=== PATIENT | female | born 1970 | race Caucasian/White ===

== ENCOUNTER 2016-12-15 08:14 | Day surgery (SDC) | payer OTHER ==
[2016-12-15 10:28] VITALS: BMI 27.3
[2016-12-15] MEDS ORDERED: PROPOFOL 20 ML ONE ×2 (10:48)
[2016-12-15 11:41] VITALS: TEMP 98.2
[2016-12-15 12:14] VITALS: BP 116/61; PULSE 72
== END 2016-12-15 12:14 | disposition home or self-care (01) ==
LOC: JASU-ENDO 08:14
PROVIDERS: ATTEND Internal Medicine Gastroenterology
PROC: 0DJD8ZZ Inspection of Lower Intestinal Tract, Via Natural or Artificial Opening Endoscopic (ICD-10-PCS; principal; 2016-12-15 09:30)
DX: D64.9 Anemia, unspecified (principal); K57.30 Diverticulosis of large intestine without perforation or abscess without bleeding; K64.8 Other hemorrhoids
CPT/HCPCS: 84703

== ENCOUNTER 2021-01-17 11:10 | Inpatient (IN) | payer OTHER ==
[2021-01-17 12:32] LABS: BASO % 0.7 % (0-2.0); EOS % 0.5 % (0-4.5); HEMATOCRIT 34.5 % (32.4-45.2); HEMOGLOBIN 11.1 GM/dL (10.7-15.3); LYMPH % 10.6 % (8-40); MCH 29.9 pg (25.7-33.7); MCHC 32.3 g/dl (32.0-36.0); MEAN CELL VOLUME 92.7 fl (80-96); MEAN PLT VOLUME 8.4 fl (7.5-11.1); MONO % 4.8 % (3.8-10.2); NEUT % 83.4 % (42.8-82.8); PLATELET COUNT 162 10^3/uL (134-434); RBC 3.72 M/mm3 (3.60-5.2); RDW 14.2 % (11.6-15.6); WHITE BLOOD COUNT 7.2 K/mm3 (4.0-10.0)
[2021-01-17 12:53] LABS: CHLORIDE 110 mmol/L (98-107); SODIUM 141 mmol/L (136-145)
[2021-01-17 12:58] LABS: ALBUMIN 3.5 g/dl (3.4-5.0); ANION GAP 8 MMOL/L (8-16); BLOOD UREA NITROGEN 14.5 mg/dL (7-18); CALCIUM 7.6 mg/dL (8.5-10.1); CO2 23 mmol/L (21-32)
[2021-01-17 12:59] LABS: GLUCOSE,RANDOM 90 mg/dL (74-106); LIPASE 112 U/L (73-393)
[2021-01-17 13:01] LABS: CREATININE 0.9 mg/dL (0.55-1.3); SGOT/AST 30 U/L (15-37); SGPT/ALT 59 U/L (13-61)
[2021-01-17 13:03] LABS: BILIRUBIN,TOTAL 0.4 mg/dL (0.2-1); TOT PROT 6.5 g/dl (6.4-8.2)
[2021-01-17 13:06] LABS: ALK PHOS 56 U/L (45-117); N-TERMINAL BNP 723.5 pg/ml (5-125)
[2021-01-17 14:16] LABS: PH,URINE 5.5 (5.0-8.0); URINE APPEARANCE CLEAR; URINE BILIRUBIN NEGATIVE (NEGATIVE); URINE COLOR YELLOW; URINE GLUCOSE (UA) NEGATIVE (NEGATIVE); URINE KETONE NEGATIVE (NEGATIVE); URINE LEUK ESTERASE NEGATIVE (NEGATIVE); URINE NITRITE NEGATIVE (NEGATIVE); URINE PROTEIN NEGATIVE (NEGATIVE); URINE UROBILINOGEN 0.2 mg/dL (0.2-1.0)
[2021-01-17] MEDS ORDERED: SODIUM CHLORIDE 500 ML IV STA (16:27)
[2021-01-17] MEDS: HEPARIN NA (PORCINE) 5,000 UNITS/ML 1ML VIAL SQ SCH (21:54)
[2021-01-17 22:15] VITALS: BMI 30.1
[2021-01-18] MEDS ORDERED: ACETAMINOPHEN 1000 MG/100 ML VIAL (NON FORMULARY) IVPB ONE (01:51)
[2021-01-18] MEDS: HEPARIN NA (PORCINE) 5,000 UNITS/ML 1ML VIAL SQ SCH ×3 (05:02→21:21)
[2021-01-18] MEDS ORDERED: LEVOTHYROXINE NA 125 MCG TABLET (FP) PO SCH ×2 (07:00→13:02)
[2021-01-18 09:36] LABS: BASO % 0.9 % (0-2.0); EOS % 1.5 % (0-4.5); HEMATOCRIT 30.6 % (32.4-45.2); LYMPH % 23.9 % (8-40); MCH 30.2 pg (25.7-33.7); MCHC 32.7 g/dl (32.0-36.0); MEAN CELL VOLUME 92.5 fl (80-96); MEAN PLT VOLUME 8.6 fl (7.5-11.1); MONO % 6.3 % (3.8-10.2); NEUT % 67.4 % (42.8-82.8); PLATELET COUNT 133 10^3/uL (134-434); RDW 14.2 % (11.6-15.6); WHITE BLOOD COUNT 4.6 K/mm3 (4.0-10.0)
[2021-01-18] MEDS ORDERED: PT OWN MED DRAWER 7, Y5N ONE ×4 (09:47→21:20)
[2021-01-18 09:56] LABS: CHLORIDE 111 mmol/L (98-107); SODIUM 141 mmol/L (136-145)
[2021-01-18] MEDS ORDERED: predniSONE 5 MG/5 ML ORAL SOLN- UNIT-DOSE CUP PO SCH (10:00)
[2021-01-18] MEDS ORDERED: TACROLIMUS ANHYDROUS 1 MG CAPSULE PO SCH (10:00)
[2021-01-18] MEDS ORDERED: CALCITRIOL 0.25 MCG CAPSULE (FP) PO SCH (10:00)
[2021-01-18 10:01] LABS: ANION GAP 9 MMOL/L (8-16); BLOOD UREA NITROGEN 17.5 mg/dL (7-18); CO2 22 mmol/L (21-32); GLUCOSE,RANDOM 71 mg/dL (74-106); MAGNESIUM 1.8 mg/dL (1.8-2.4)
[2021-01-18 10:04] LABS: CREATININE 0.9 mg/dL (0.55-1.3); SGOT/AST 25 U/L (15-37); SGPT/ALT 49 U/L (13-61)
[2021-01-18 10:06] LABS: BILIRUBIN,TOTAL 0.9 mg/dL (0.2-1); TOT PROT 5.5 g/dl (6.4-8.2)
[2021-01-18 10:07] LABS: ALK PHOS 51 U/L (45-117)
[2021-01-18] MEDS: CALCIUM CARBONATE 650 MG TABLET PO SCH (10:33)
[2021-01-18] MEDS: LOSARTAN POTASSIUM 50 MG TABLET PO SCH (10:33)
[2021-01-18] MEDS ORDERED: ALBUTEROL SO4 2.5/IPRATROPIUM 0.5 INH SOL 3 ML VIAL.NEB. NEB PRN (12:36)
[2021-01-18] MEDS ORDERED: FUROSEMIDE 40 MG/4 ML INJECTABLE VIAL IVPUSH ONE (12:58)
[2021-01-18] MEDS ORDERED: predniSONE 5 MG TABLET (UD) PO SCH (15:00)
[2021-01-18 16:01] LABS: BASO % 0.7 % (0-2.0); EOS % 1.3 % (0-4.5); HEMATOCRIT 35.3 % (32.4-45.2); HEMOGLOBIN 11.5 GM/dL (10.7-15.3); MCH 29.9 pg (25.7-33.7); MCHC 32.6 g/dl (32.0-36.0); MEAN CELL VOLUME 91.8 fl (80-96); MEAN PLT VOLUME 8.4 fl (7.5-11.1); MONO % 5.3 % (3.8-10.2); NEUT % 77.7 % (42.8-82.8); PLATELET COUNT 155 10^3/uL (134-434); RBC 3.84 M/mm3 (3.60-5.2); RDW 14.1 % (11.6-15.6); WHITE BLOOD COUNT 4.9 K/mm3 (4.0-10.0)
[2021-01-18 16:08] LABS: IRON SERUM 32 ug/dL (50-175); TOTAL IRON BINDING CAPACITY 244 ug/dL (250-450)
[2021-01-18] MEDS: ALBUTEROL SO4 2.5/IPRATROPIUM 0.5 INH SOL 3 ML VIAL.NEB. NEB SCH ×2 (16:20→20:05)
[2021-01-18] MEDS: TACROLIMUS ANHYDROUS 1 MG CAPSULE PO SCH (21:22)
[2021-01-18] MEDS: MYCOPHENOLATE MOFETIL 500 MG TABLET PO SCH (21:22)
[2021-01-19] MEDS ORDERED: LEVOTHYROXINE NA 25 MCG TABLET (FP) ONE (05:21)
[2021-01-19] MEDS ORDERED: LEVOTHYROXINE NA 112 MCG TABLET (FP) ONE (05:22)
[2021-01-19] MEDS: HEPARIN NA (PORCINE) 5,000 UNITS/ML 1ML VIAL SQ SCH ×3 (06:05→21:25)
[2021-01-19] MEDS: LEVOTHYROXINE 112 MCG, LEVOTHYROXINE 25 MCG PO SCH (06:05)
[2021-01-19] MEDS: ALBUTEROL SO4 2.5/IPRATROPIUM 0.5 INH SOL 3 ML VIAL.NEB. NEB SCH ×4 (07:25→20:25)
[2021-01-19 08:14] LABS: BASO % 0.6 % (0-2.0); EOS % 2.1 % (0-4.5); HEMATOCRIT 32.3 % (32.4-45.2); HEMOGLOBIN 10.6 GM/dL (10.7-15.3); LYMPH % 27.5 % (8-40); MCH 30.1 pg (25.7-33.7); MCHC 32.9 g/dl (32.0-36.0); MEAN CELL VOLUME 91.7 fl (80-96); MONO % 8.4 % (3.8-10.2); NEUT % 61.4 % (42.8-82.8); PLATELET COUNT 143 10^3/uL (134-434); RBC 3.53 M/mm3 (3.60-5.2); RDW 13.8 % (11.6-15.6); WHITE BLOOD COUNT 4.6 K/mm3 (4.0-10.0)
[2021-01-19 08:29] LABS: CHLORIDE 105 mmol/L (98-107); SODIUM 139 mmol/L (136-145)
[2021-01-19 08:39] LABS: CALCIUM 7.2 mg/dL (8.5-10.1); GLUCOSE,RANDOM 72 mg/dL (74-106)
[2021-01-19 08:40] LABS: ALBUMIN 3.1 g/dl (3.4-5.0); ANION GAP 7 MMOL/L (8-16); CO2 28 mmol/L (21-32); MAGNESIUM 1.7 mg/dL (1.8-2.4)
[2021-01-19 08:41] LABS: SGPT/ALT 45 U/L (13-61)
[2021-01-19 08:42] LABS: SGOT/AST 17 U/L (15-37)
[2021-01-19 08:43] LABS: BILIRUBIN,TOTAL 0.6 mg/dL (0.2-1)
[2021-01-19 08:44] LABS: ALK PHOS 54 U/L (45-117)
[2021-01-19] MEDS ORDERED: PT OWN MED DRAWER 7, Y5N ONE ×2 (08:59→11:03)
[2021-01-19] MEDS ORDERED: FUROSEMIDE 40 MG/4 ML INJECTABLE VIAL IVPUSH ONE (09:10)
[2021-01-19] MEDS ORDERED: MAGNESIUM SULF 50% (8.12 MEQ/2 ML-1 GM VIAL) IVPB ONE (09:33)
[2021-01-19] MEDS ORDERED: MYCOPHENOLATE MOFETIL 500 MG TABLET PO SCH (10:00)
[2021-01-19] MEDS: methylPREDNISolone NA SUCC 40 MG/1 ML VIAL IVPUSH SCH ×2 (10:04→17:16)
[2021-01-19] MEDS: MYCOPHENOLATE MOFETIL 500 MG TABLET PO SCH ×2 (10:05→21:24)
[2021-01-19] MEDS: TACROLIMUS ANHYDROUS 1 MG CAPSULE PO SCH ×2 (10:05→21:24)
[2021-01-19] MEDS: LOSARTAN POTASSIUM 50 MG TABLET PO SCH (10:05)
[2021-01-19] MEDS: POTASSIUM CHLORIDE TABS 20 MEQ TABLET.ER (FP) PO SCH (10:05)
[2021-01-19] MEDS: CALCITRIOL 0.25 MCG CAPSULE (FP) PO SCH (10:05)
[2021-01-19] MEDS: CALCIUM CARBONATE 650 MG TABLET PO SCH (10:05)
[2021-01-19] MEDS: FUROSEMIDE 40 MG/4 ML INJECTABLE VIAL IVPUSH SCH (14:26)
[2021-01-19] MEDS: ACETAMINOPHEN 500 MG TABLET (FP) PO PRN (22:56)
[2021-01-20] MEDS: methylPREDNISolone NA SUCC 40 MG/1 ML VIAL IVPUSH SCH ×3 (01:08→17:41)
[2021-01-20] MEDS ORDERED: LEVOTHYROXINE NA 112 MCG TABLET (FP) ONE (05:31)
[2021-01-20] MEDS ORDERED: LEVOTHYROXINE NA 25 MCG TABLET (FP) ONE (05:31)
[2021-01-20] MEDS: HEPARIN NA (PORCINE) 5,000 UNITS/ML 1ML VIAL SQ SCH ×3 (05:32→21:29)
[2021-01-20] MEDS: FUROSEMIDE 40 MG/4 ML INJECTABLE VIAL IVPUSH SCH ×2 (05:32→14:32)
[2021-01-20] MEDS: LEVOTHYROXINE 112 MCG, LEVOTHYROXINE 25 MCG PO SCH (06:12)
[2021-01-20] MEDS: ALBUTEROL SO4 2.5/IPRATROPIUM 0.5 INH SOL 3 ML VIAL.NEB. NEB SCH ×4 (07:20→20:07)
[2021-01-20] MEDS ORDERED: PT OWN MED DRAWER 7, Y5N ONE ×2 (09:37→21:16)
[2021-01-20 09:38] LABS: BASO % 0.4 % (0-2.0); HEMATOCRIT 38.7 % (32.4-45.2); LYMPH % 2.9 % (8-40); MCH 30.2 pg (25.7-33.7); MCHC 33.5 g/dl (32.0-36.0); MEAN CELL VOLUME 89.9 fl (80-96); MEAN PLT VOLUME 7.1 fl (7.5-11.1); MONO % 2.4 % (3.8-10.2); NEUT % 94.3 % (42.8-82.8); PLATELET COUNT 185 10^3/uL (134-434); RDW 14.7 % (11.6-15.6); WHITE BLOOD COUNT 11.5 K/mm3 (4.0-10.0)
[2021-01-20] MEDS: MYCOPHENOLATE MOFETIL 500 MG TABLET PO SCH ×2 (09:41→21:31)
[2021-01-20] MEDS: CALCIUM CARBONATE 650 MG TABLET PO SCH (09:41)
[2021-01-20] MEDS: LOSARTAN POTASSIUM 50 MG TABLET PO SCH (09:41)
[2021-01-20] MEDS: CALCITRIOL 0.25 MCG CAPSULE (FP) PO SCH (09:41)
[2021-01-20] MEDS: POTASSIUM CHLORIDE TABS 20 MEQ TABLET.ER (FP) PO SCH (09:41)
[2021-01-20] MEDS: TACROLIMUS ANHYDROUS 1 MG CAPSULE PO SCH (09:41)
[2021-01-20 10:01] LABS: BLOOD UREA NITROGEN 21.9 mg/dL (7-18); MAGNESIUM 1.8 mg/dL (1.8-2.4)
[2021-01-20 10:04] LABS: CREATININE 1.2 mg/dL (0.55-1.3)
[2021-01-20 10:05] LABS: BILIRUBIN,TOTAL 0.7 mg/dL (0.2-1)
[2021-01-20 10:23] LABS: ALBUMIN 4.3 g/dl (3.4-5.0); CALCIUM 8.4 mg/dL (8.5-10.1); TOT PROT 8.2 g/dl (6.4-8.2)
[2021-01-20 11:31] LABS: ANISOCYTOSIS 1+; MACROCYTOSIS 0; OVALOCYTE 1+; PLATELET ESTIMATE NORMAL; TARGET CELLS 1+
[2021-01-20] MEDS ORDERED: TACROLIMUS ANHYDROUS 1 MG CAPSULE PO SCH (20:32)
[2021-01-20] MEDS: TACROLIMUS ANHYDROUS 1 MG, TACROLIMUS ANHYDROUS 0.5 MG PO SCH (21:29)
[2021-01-20] MEDS: ACETAMINOPHEN 500 MG TABLET (FP) PO PRN (21:41)
[2021-01-21] MEDS: methylPREDNISolone NA SUCC 40 MG/1 ML VIAL IVPUSH SCH ×2 (02:31→09:21)
[2021-01-21] MEDS ORDERED: LEVOTHYROXINE NA 25 MCG TABLET (FP) ONE (06:26)
[2021-01-21] MEDS ORDERED: LEVOTHYROXINE NA 112 MCG TABLET (FP) ONE (06:26)
[2021-01-21] MEDS: HEPARIN NA (PORCINE) 5,000 UNITS/ML 1ML VIAL SQ SCH ×3 (06:30→22:06)
[2021-01-21] MEDS: LEVOTHYROXINE 112 MCG, LEVOTHYROXINE 25 MCG PO SCH (06:30)
[2021-01-21] MEDS: ALBUTEROL SO4 2.5/IPRATROPIUM 0.5 INH SOL 3 ML VIAL.NEB. NEB SCH ×4 (07:25→20:48)
[2021-01-21] MEDS ORDERED: PT OWN MED DRAWER 7, Y5N ONE ×2 (09:14→22:02)
[2021-01-21] MEDS: POTASSIUM CHLORIDE TABS 20 MEQ TABLET.ER (FP) PO SCH (09:20)
[2021-01-21] MEDS: guaiFENesin/CODEINE 5 ML UNIT-DOSE CUPS PO PRN (09:20)
[2021-01-21] MEDS: LOSARTAN POTASSIUM 50 MG TABLET PO SCH (09:20)
[2021-01-21] MEDS: TACROLIMUS ANHYDROUS 1 MG, TACROLIMUS ANHYDROUS 0.5 MG PO SCH ×2 (09:22→22:05)
[2021-01-21] MEDS: MYCOPHENOLATE MOFETIL 500 MG TABLET PO SCH ×2 (09:23→22:05)
[2021-01-21] MEDS: CALCIUM CARBONATE 650 MG TABLET PO SCH (09:23)
[2021-01-21] MEDS: CALCITRIOL 0.25 MCG CAPSULE (FP) PO SCH (09:24)
[2021-01-21 12:52] LABS: URINE APPEARANCE TURBID; URINE BILIRUBIN NEGATIVE (NEGATIVE); URINE COLOR YELLOW; URINE GLUCOSE (UA) NEGATIVE (NEGATIVE); URINE KETONE NEGATIVE (NEGATIVE); URINE LEUK ESTERASE 3+ (NEGATIVE); URINE NITRITE NEGATIVE (NEGATIVE); URINE PROTEIN NEGATIVE (NEGATIVE); URINE UROBILINOGEN 0.2 mg/dL (0.2-1.0)
[2021-01-21 13:03] LABS: URINE RBC 70.6 /uL (0-23.9)
[2021-01-21 13:04] LABS: EPI CELLS 132.3 /uL (0-25.1); HYALINE CASTS 2.79 /uL (0-3.1); URINE BACTERIA 3564.7 /uL (0-1359)
[2021-01-21] MEDS ORDERED: cefTRIAXone SODIUM 1 GM VIAL ONE (16:42)
[2021-01-21] MEDS ORDERED: DEXTROSE 5%-WATER - 50 ML IVPB ONE (16:43)
[2021-01-21] MEDS: CEFTRIAXONE 1 GM in DEXTROSE 5%-WATER - 50 ML IVPB SCH (16:58)
[2021-01-21] MEDS ORDERED: MICONAZOLE NITRATE 2% VAGINAL CREAM 45 GM TUBE VG SCH (22:00)
[2021-01-22] MEDS ORDERED: LEVOTHYROXINE NA 25 MCG TABLET (FP) ONE (06:23)
[2021-01-22] MEDS ORDERED: LEVOTHYROXINE NA 112 MCG TABLET (FP) ONE (06:24)
[2021-01-22] MEDS: HEPARIN NA (PORCINE) 5,000 UNITS/ML 1ML VIAL SQ SCH (06:25)
[2021-01-22] MEDS: LEVOTHYROXINE 112 MCG, LEVOTHYROXINE 25 MCG PO SCH (06:25)
[2021-01-22] MEDS: guaiFENesin/CODEINE 5 ML UNIT-DOSE CUPS PO PRN (06:33)
[2021-01-22] MEDS: ALBUTEROL SO4 2.5/IPRATROPIUM 0.5 INH SOL 3 ML VIAL.NEB. NEB SCH ×2 (08:30→13:00)
[2021-01-22 09:06] VITALS: BP 136/64; PULSE 115; TEMP 98.3
[2021-01-22] MEDS ORDERED: DEXTROSE 5%-WATER - 50 ML IVPB ONE (09:21)
[2021-01-22] MEDS ORDERED: cefTRIAXone SODIUM 1 GM VIAL ONE (09:21)
[2021-01-22] MEDS: CEFTRIAXONE 1 GM in DEXTROSE 5%-WATER - 50 ML IVPB SCH (09:22)
[2021-01-22] MEDS: POTASSIUM CHLORIDE TABS 20 MEQ TABLET.ER (FP) PO SCH (09:24)
[2021-01-22] MEDS: LOSARTAN POTASSIUM 50 MG TABLET PO SCH (09:24)
[2021-01-22] MEDS: TACROLIMUS ANHYDROUS 1 MG, TACROLIMUS ANHYDROUS 0.5 MG PO SCH (09:25)
[2021-01-22] MEDS: CALCIUM CARBONATE 650 MG TABLET PO SCH (09:26)
[2021-01-22] MEDS: MYCOPHENOLATE MOFETIL 500 MG TABLET PO SCH (09:26)
[2021-01-22] MEDS ORDERED: PT OWN MED DRAWER 7, Y5N ONE ×2 (09:28→11:21)
[2021-01-22] MEDS: CALCITRIOL 0.25 MCG CAPSULE (FP) PO SCH ×2 (11:08→11:33)
[2021-01-22 11:46] LABS: HEMATOCRIT 43.4 % (32.4-45.2); HEMOGLOBIN 13.9 GM/dL (10.7-15.3); MCH 29.6 pg (25.7-33.7); MCHC 32.1 g/dl (32.0-36.0); MEAN CELL VOLUME 92.4 fl (80-96); MEAN PLT VOLUME 8.4 fl (7.5-11.1); PLATELET COUNT 187 10^3/uL (134-434); RDW 14.7 % (11.6-15.6)
[2021-01-22 12:18] LABS: BLOOD UREA NITROGEN 21.3 mg/dL (7-18)
[2021-01-22 12:19] LABS: MAGNESIUM 1.9 mg/dL (1.8-2.4)
[2021-01-22 12:22] LABS: CREATININE 0.9 mg/dL (0.55-1.3)
== END 2021-01-22 14:33 | disposition home or self-care (01) | DRG 194 ==
LOC: JER 11:10 → JERBED 13:45 → J6S 21:12
PROVIDERS: ADMIT Family Medicine; ATTEND Family Medicine
DX: I13.2 Hypertensive heart and chronic kidney disease with heart failure and with stage 5 chronic kidney disease, or end stage renal disease (principal); N18.6 End stage renal disease; N39.0 Urinary tract infection, site not specified; E03.9 Hypothyroidism, unspecified; R07.89 Other chest pain; R79.89 Other specified abnormal findings of blood chemistry; E83.51 Hypocalcemia; R93.89 Abnormal findings on diagnostic imaging of other specified body structures; I50.31 Acute diastolic (congestive) heart failure; E78.5 Hyperlipidemia, unspecified; Z99.2 Dependence on renal dialysis; Z94.0 Kidney transplant status; Z85.3 Personal history of malignant neoplasm of breast
CPT/HCPCS: 36415; 71045-TC-FY; 71046-TC-FY; 71275-TC; 80048; 80053; 80197; 81003; 82550; 82728; 83540; 83550; 83690; 83735; 83880; 84100; 84443; 84484; 85025; 85027; 85379; 87086; 93005; 93010; 93306-TC; 93970-TC; 94010; 94640; 99285-25; C9803; J0131; J1644; J7517; Q9967; U0003; U0005

== ENCOUNTER 2021-04-02 04:37 | Day surgery (SDC) | payer OTHER ==
[2021-04-01 17:35] VITALS: BMI 34.5
[2021-04-02] MEDS ORDERED: HEPARIN NA (PORCINE) 5,000 UNITS/ML 1ML VIAL ONE (07:30)
[2021-04-02] MEDS ORDERED: LIDOCAINE HCL 1%, 10 MG/ML (20ML VIAL) ONE (07:30)
[2021-04-02] MEDS ORDERED: POVIDONE-IODINE OINTMENT 10% - 28.4 GM TUBE ONE (07:30)
[2021-04-02] MEDS ORDERED: PAPAVERINE HCL 30 MG/1 ML 10 ML VIAL NR ONE (07:30)
[2021-04-02] MEDS ORDERED: MIDAZOLAM HCL 2 MG/2 ML SINGLE DOSE VIAL ONE (09:43)
[2021-04-02] MEDS ORDERED: LIDOCAINE HCL 1%, 10 MG/ML (20ML VIAL) PNB ONE (10:25)
[2021-04-02] MEDS ORDERED: HEPARIN NA (PORCINE) 5,000 UNITS/ML 1ML VIAL SQ ONE (10:28)
[2021-04-02] MEDS ORDERED: DEXAMETHASONE SOD PHOSPHATE 4 MG/1 ML VIAL ONE (10:38)
[2021-04-02] MEDS ORDERED: oxyCODONE HCL 5 MG TABLET PO PRN (10:38)
[2021-04-02] MEDS ORDERED: ONDANSETRON 4 MG/2 ML VIAL IVPUSH PRN (10:38)
[2021-04-02] MEDS ORDERED: PROPOFOL 20 ML ONE (10:41)
[2021-04-02] MEDS ORDERED: LACTATED RINGERS SOLUTION 1,000 ML IV SCH (10:45)
[2021-04-02 14:30] VITALS: BP 130/80; PULSE 87; TEMP 98.4
== END 2021-04-02 14:35 | disposition home or self-care (01) ==
LOC: JASU-SURG 04:37
PROVIDERS: ATTEND Surgery
PROC: 03L80ZZ Occlusion of Left Brachial Artery, Open Approach (ICD-10-PCS; principal; 2021-04-02 10:00)
DX: I72.1 Aneurysm of artery of upper extremity (principal); T82.590A Other mechanical complication of surgically created arteriovenous fistula, initial encounter; Y82.8 Other medical devices associated with adverse incidents; Y92.9 Unspecified place or not applicable
CPT/HCPCS: 94760; J1644

== ENCOUNTER 2023-03-22 00:43 | Inpatient (IN) | payer OTHER ==
[2023-03-22 00:58] VITALS: BMI 33.3
[2023-03-22] MEDS ORDERED: morphine SULFATE 4 MG/ML VIAL IVPUSH ONE ×2 (01:25→19:27)
[2023-03-22] MEDS ORDERED: SODIUM CHLORIDE 0.9% 500 ML INFUS.BAG IV ONE (01:25)
[2023-03-22] MEDS ORDERED: ONDANSETRON 4 MG/2 ML VIAL IVPUSH ONE ×2 (01:25→19:27)
[2023-03-22] MEDS ORDERED: morphine SULFATE 4 MG/ML VIAL ONE ×2 (02:49→19:55)
[2023-03-22] MEDS ORDERED: ONDANSETRON 4 MG/2 ML VIAL ONE ×2 (02:49→19:55)
[2023-03-22 03:22] LABS: BASO % 0.3 % (0-2.0); EOS % 0.4 % (0-4.5); HEMATOCRIT 35.2 % (32.4-45.2); MCH 29.1 pg (25.7-33.7); MEAN CELL VOLUME 85.6 fl (80-96); MEAN PLT VOLUME 7.9 fl (7.5-11.1); MONO % 6.9 % (3.8-10.2); NEUT % 75.4 % (42.8-82.8); PLATELET COUNT 168 10^3/uL (134-434); RBC 4.11 M/mm3 (3.60-5.2); RDW 14.4 % (11.6-15.6)
[2023-03-22 03:29] LABS: EPI CELLS 15 /uL (0-25.1); HYALINE CASTS 0 /uL (0-3.1); PH,URINE 6.5 (5.0-8.0); URINE APPEARANCE CLEAR; URINE BACTERIA 581 /uL (0-1359); URINE BILIRUBIN NEGATIVE (NEGATIVE); URINE COLOR YELLOW; URINE GLUCOSE (UA) NEGATIVE (NEGATIVE); URINE KETONE NEGATIVE (NEGATIVE); URINE LEUK ESTERASE TRACE (NEGATIVE); URINE NITRITE NEGATIVE (NEGATIVE); URINE PROTEIN NEGATIVE (NEGATIVE); URINE RBC 2 /uL (0-23.9); URINE UROBILINOGEN 0.2 mg/dL (0.2-1.0); URINE WBC 22 /uL (0-25.8)
[2023-03-22 03:45] LABS: POTASSIUM 3.7 mmol/L (3.5-5.1)
[2023-03-22 03:47] LABS: ALBUMIN 3.6 g/dl (3.4-5.0); BLOOD UREA NITROGEN 26.1 mg/dL (7-18); CALCIUM 11.4 mg/dL (8.5-10.1)
[2023-03-22 03:50] LABS: CREATININE 1.4 mg/dL (0.55-1.3)
[2023-03-22 03:52] LABS: BILIRUBIN,TOTAL 0.3 mg/dL (0.2-1); TOT PROT 6.9 g/dl (6.4-8.2)
[2023-03-22] MEDS ORDERED: PIPERACILLIN/TAZOB 4.5 GM 4.5 GM in DEXTROSE 5%-WATER 100 ML IVPB ONE (05:29)
[2023-03-22] MEDS ORDERED: PIPERACILLIN/TAZOB 4.5 GM 4.5 GM/100 ML BAG IVPB ONE ×3 (05:37→19:10)
[2023-03-22] MEDS ORDERED: amLODIPine BESYLATE 2.5 MG TABLET (FP) ONE (09:26)
[2023-03-22] MEDS ORDERED: LEVOTHYROXINE NA 100 MCG TABLET (FP) ONE (09:26)
[2023-03-22] MEDS ORDERED: LEVOTHYROXINE NA 25 MCG TABLET (FP) ONE (09:26)
[2023-03-22] MEDS ORDERED: MULTIVITAMINS (DAILY MVI) TABLET (FP) ONE (09:26)
[2023-03-22] MEDS: LEVOTHYROXINE NA 125 MCG TABLET (FP) PO SCH (09:50)
[2023-03-22] MEDS ORDERED: CALCITRIOL 0.25 MCG CAPSULE (FP) PO SCH ×2 (10:00)
[2023-03-22] MEDS: MYCOPHENOLATE MOFETIL 500 MG TABLET PO SCH ×2 (11:00→21:44)
[2023-03-22] MEDS: TACROLIMUS ANHYDROUS 1 MG CAPSULE PO SCH ×2 (11:00→21:44)
[2023-03-22] MEDS: MULTIVITAMINS (DAILY MVI) TABLET (FP) PO SCH (11:00)
[2023-03-22] MEDS: amLODIPine BESYLATE 2.5 MG TABLET (FP) PO SCH (11:15)
[2023-03-22] MEDS: MAGNESIUM CL 64 MG TABLET.SA PO SCH (11:28)
[2023-03-22] MEDS ORDERED: PIPERACILLIN/TAZOB 4.5 GM 4.5 GM in DEXTROSE 5%-WATER 100 ML IVPB SCH (12:00)
[2023-03-22] MEDS: PIPERACILLIN/TAZOB 4.5 GM 4.5 GM in DEXTROSE 5%-WATER 100 ML IVPB SCH ×2 (14:37→20:19)
[2023-03-22 15:23] LABS: BASO % 0.4 % (0-2.0); EOS % 0.9 % (0-4.5); HEMATOCRIT 36.3 % (32.4-45.2); HEMOGLOBIN 12.3 GM/dL (10.7-15.3); LYMPH % 20.5 % (8-40); MCHC 33.9 g/dl (32.0-36.0); MEAN CELL VOLUME 85.6 fl (80-96); MEAN PLT VOLUME 7.6 fl (7.5-11.1); MONO % 6.7 % (3.8-10.2); NEUT % 71.5 % (42.8-82.8); PLATELET COUNT 173 10^3/uL (134-434); RBC 4.25 M/mm3 (3.60-5.2); RDW 14.5 % (11.6-15.6); WHITE BLOOD COUNT 6.9 K/mm3 (4.0-10.0)
[2023-03-22 15:55] LABS: POTASSIUM 3.7 mmol/L (3.5-5.1)
[2023-03-22 15:56] LABS: CALCIUM 10.1 mg/dL (8.5-10.1)
[2023-03-22 16:00] LABS: CREATININE 1.3 mg/dL (0.55-1.3)
[2023-03-22] MEDS: predniSONE 5 MG TABLET (UD) PO SCH (20:08)
[2023-03-22] MEDS: CALCIUM CARBONATE 650 MG TABLET PO SCH (21:42)
[2023-03-23] MEDS: PIPERACILLIN/TAZOB 4.5 GM 4.5 GM in DEXTROSE 5%-WATER 100 ML IVPB SCH ×3 (02:21→17:13)
[2023-03-23] MEDS: LEVOTHYROXINE NA 125 MCG TABLET (FP) PO SCH (06:08)
[2023-03-23] MEDS: CALCIUM CARBONATE 650 MG TABLET PO SCH (09:32)
[2023-03-23] MEDS: MULTIVITAMINS (DAILY MVI) TABLET (FP) PO SCH (09:42)
[2023-03-23] MEDS: LISINOPRIL 20 MG TABLET PO SCH (09:42)
[2023-03-23] MEDS: predniSONE 5 MG TABLET (UD) PO SCH (09:42)
[2023-03-23] MEDS: MAGNESIUM CL 64 MG TABLET.SA PO SCH (09:42)
[2023-03-23] MEDS: MYCOPHENOLATE MOFETIL 500 MG TABLET PO SCH ×2 (09:43→21:23)
[2023-03-23] MEDS: amLODIPine BESYLATE 2.5 MG TABLET (FP) PO SCH (09:43)
[2023-03-23] MEDS: TACROLIMUS ANHYDROUS 1 MG CAPSULE PO SCH (09:43)
[2023-03-23 10:00] LABS: BASO % 1.1 % (0-2.0); EOS % 0.9 % (0-4.5); HEMATOCRIT 36.6 % (32.4-45.2); HEMOGLOBIN 11.8 GM/dL (10.7-15.3); LYMPH % 25.3 % (8-40); MCH 28.6 pg (25.7-33.7); MCHC 32.3 g/dl (32.0-36.0); MEAN CELL VOLUME 88.3 fl (80-96); MEAN PLT VOLUME 8.8 fl (7.5-11.1); MONO % 5.7 % (3.8-10.2); PLATELET COUNT 168 10^3/uL (134-434); RBC 4.15 M/mm3 (3.60-5.2); RDW 13.9 % (11.6-15.6); WHITE BLOOD COUNT 5.4 K/mm3 (4.0-10.0)
[2023-03-23 10:27] LABS: ALBUMIN 3.4 g/dl (3.4-5.0); BLOOD UREA NITROGEN 16.9 mg/dL (7-18); CALCIUM 9.9 mg/dL (8.5-10.1)
[2023-03-23 10:30] LABS: CREATININE 1.3 mg/dL (0.55-1.3)
[2023-03-23] MEDS: POLYETHYLENE GLYCOL (HEALTHYLAX) 3350 17 GM PACKET PO SCH ×2 (10:31→21:22)
[2023-03-23 10:32] LABS: BILIRUBIN,TOTAL 0.5 mg/dL (0.2-1); TOT PROT 6.8 g/dl (6.4-8.2)
[2023-03-23] MEDS: TACROLIMUS ANHYDROUS 1 MG, TACROLIMUS ANHYDROUS 0.5 MG PO SCH (21:23)
[2023-03-24] MEDS: PIPERACILLIN/TAZOB 4.5 GM 4.5 GM in DEXTROSE 5%-WATER 100 ML IVPB SCH ×3 (01:50→18:20)
[2023-03-24] MEDS: LEVOTHYROXINE NA 125 MCG TABLET (FP) PO SCH (06:00)
[2023-03-24] MEDS: POLYETHYLENE GLYCOL (HEALTHYLAX) 3350 17 GM PACKET PO SCH ×2 (10:53→23:13)
[2023-03-24] MEDS: MULTIVITAMINS (DAILY MVI) TABLET (FP) PO SCH (10:53)
[2023-03-24] MEDS: predniSONE 5 MG TABLET (UD) PO SCH (10:53)
[2023-03-24] MEDS: LISINOPRIL 20 MG TABLET PO SCH (10:53)
[2023-03-24] MEDS: amLODIPine BESYLATE 2.5 MG TABLET (FP) PO SCH (10:53)
[2023-03-24] MEDS: MAGNESIUM CL 64 MG TABLET.SA PO SCH (10:54)
[2023-03-24] MEDS: TACROLIMUS ANHYDROUS 1 MG, TACROLIMUS ANHYDROUS 0.5 MG PO SCH ×2 (10:54→23:11)
[2023-03-24] MEDS: CALCIUM CARBONATE 650 MG TABLET PO SCH (10:55)
[2023-03-24] MEDS: MYCOPHENOLATE MOFETIL 500 MG TABLET PO SCH ×2 (10:56→23:11)
[2023-03-24 11:55] LABS: POTASSIUM 4.3 mmol/L (3.5-5.1)
[2023-03-24 12:02] LABS: BLOOD UREA NITROGEN 14.3 mg/dL (7-18)
[2023-03-24 12:05] LABS: CREATININE 1.3 mg/dL (0.55-1.3)
[2023-03-24] MEDS ORDERED: ACETAMINOPHEN 325 MG TABLET (FP) PO PRN (12:35)
[2023-03-25] MEDS: PIPERACILLIN/TAZOB 4.5 GM 4.5 GM in DEXTROSE 5%-WATER 100 ML IVPB SCH ×3 (02:15→18:02)
[2023-03-25] MEDS: LEVOTHYROXINE NA 125 MCG TABLET (FP) PO SCH (06:17)
[2023-03-25] MEDS: POLYETHYLENE GLYCOL (HEALTHYLAX) 3350 17 GM PACKET PO SCH ×2 (09:38→21:58)
[2023-03-25] MEDS: LISINOPRIL 20 MG TABLET PO SCH (09:38)
[2023-03-25] MEDS: MULTIVITAMINS (DAILY MVI) TABLET (FP) PO SCH (09:38)
[2023-03-25] MEDS: predniSONE 5 MG TABLET (UD) PO SCH (09:38)
[2023-03-25] MEDS: amLODIPine BESYLATE 2.5 MG TABLET (FP) PO SCH (09:38)
[2023-03-25] MEDS: CALCIUM CARBONATE 650 MG TABLET PO SCH (09:39)
[2023-03-25] MEDS: MYCOPHENOLATE MOFETIL 500 MG TABLET PO SCH ×2 (09:39→22:19)
[2023-03-25] MEDS: MAGNESIUM CL 64 MG TABLET.SA PO SCH (09:40)
[2023-03-25] MEDS: TACROLIMUS ANHYDROUS 1 MG, TACROLIMUS ANHYDROUS 0.5 MG PO SCH ×2 (09:41→22:20)
[2023-03-26] MEDS: PIPERACILLIN/TAZOB 4.5 GM 4.5 GM in DEXTROSE 5%-WATER 100 ML IVPB SCH ×2 (01:59→09:38)
[2023-03-26] MEDS: LEVOTHYROXINE NA 125 MCG TABLET (FP) PO SCH (06:11)
[2023-03-26] MEDS: MULTIVITAMINS (DAILY MVI) TABLET (FP) PO SCH (09:38)
[2023-03-26] MEDS: amLODIPine BESYLATE 2.5 MG TABLET (FP) PO SCH (09:38)
[2023-03-26] MEDS: predniSONE 5 MG TABLET (UD) PO SCH (09:38)
[2023-03-26] MEDS: LISINOPRIL 20 MG TABLET PO SCH (09:43)
[2023-03-26] MEDS: POLYETHYLENE GLYCOL (HEALTHYLAX) 3350 17 GM PACKET PO SCH ×2 (09:43→10:18)
[2023-03-26] MEDS: MYCOPHENOLATE MOFETIL 500 MG TABLET PO SCH (09:44)
[2023-03-26] MEDS: TACROLIMUS ANHYDROUS 1 MG, TACROLIMUS ANHYDROUS 0.5 MG PO SCH (09:45)
[2023-03-26] MEDS: MAGNESIUM CL 64 MG TABLET.SA PO SCH (09:46)
[2023-03-26] MEDS: CALCIUM CARBONATE 650 MG TABLET PO SCH (09:47)
[2023-03-26 11:21] LABS: BASO % 0.6 % (0-2.0); EOS % 1.6 % (0-4.5); HEMATOCRIT 36.1 % (32.4-45.2); HEMOGLOBIN 12.3 GM/dL (10.7-15.3); LYMPH % 39.5 % (8-40); MCHC 33.9 g/dl (32.0-36.0); MEAN CELL VOLUME 85.4 fl (80-96); MEAN PLT VOLUME 7.7 fl (7.5-11.1); NEUT % 51.3 % (42.8-82.8); PLATELET COUNT 203 10^3/uL (134-434); RBC 4.23 M/mm3 (3.60-5.2); RDW 14.2 % (11.6-15.6); WHITE BLOOD COUNT 5.3 K/mm3 (4.0-10.0)
[2023-03-26 11:42] LABS: CALCIUM 8.1 mg/dL (8.5-10.1)
[2023-03-26 11:43] LABS: BLOOD UREA NITROGEN 10.7 mg/dL (7-18)
[2023-03-26 11:46] LABS: CREATININE 1.2 mg/dL (0.55-1.3)
[2023-03-26 13:51] VITALS: BP 115/75; PULSE 91; RESP 18; TEMP 98.4
== END 2023-03-26 15:32 | disposition home or self-care (01) | DRG 244 ==
LOC: JER 00:43 → JERBED 05:29 → J8W 22:51
PROVIDERS: ADMIT Family Medicine; ATTEND Family Medicine
DX: K57.32 Diverticulitis of large intestine without perforation or abscess without bleeding (principal); I10 Essential (primary) hypertension; Z94.0 Kidney transplant status; D84.821 Immunodeficiency due to drugs; E83.52 Hypercalcemia; R74.8 Abnormal levels of other serum enzymes
CPT/HCPCS: 36415; 70450-TC; 74176-TC; 80048; 80053; 81003; 82272; 83605; 83690; 84702; 84703; 85025; 86140; 87040; 87086; 99285-25; J7517; Q9967